=== PATIENT | female | born 2000 | race Caucasian/White ===

== ENCOUNTER 2024-12-10 13:29 | Inpatient (IN) ==
[2024-12-10] MEDS ORDERED: VANCOMYCIN CONSULT ACTIVE PRN (13:58)
[2024-12-10] MEDS ORDERED: LIDOCAINE 1% LOCAL 20 ML VIAL INFIL PRN (13:58)
[2024-12-10] MEDS ORDERED: VANCOMYCIN HCL 1,000 MG/270 ML BAG IV STA (13:58)
--- NOTE | 2024-12-10 13:58 | Labor Progress Brief Note ---
Date of Service December 10, 2024 Subjective 24yo at 36w3d with SIUP. Pt was seen in office yesterday and c/o significant itching, including on palms and soles but on other surfaces / body parts also. "It can be anywhere." Labs done yesterday were resulted showing DBili 0.4, AST 277, ALT 555. This preg c/b A1GDM, GBS positivity, and vaping daily. Recent growth US has been EFW 34%, AC 51%. Patient's obstetric history is notable for a 40wk IUFD in December 2023 at [facility]. There was SGA and oligohydramnios at the time of delivery. No cause for the demise was ever identified per patient other than possible cord accident; specifically, chromosome testing and postmortem exam were WNL. I have discussed this patient's case with Dr. Jovan Davila at [facility]. While bile acids will take a while to result, he advises that the presumed diagnosis of cholestasis indicates for delivery as she is >36wk. The option to attempt to delay delivery to achieve steroid administration and/or 37wk GA is also considered reasonable given her current labs and symptoms, and options were therefore relayed to patient. She prefers immediate IOL given her history and current anxiety about the prior outcome repeating. Assessment & Plan (1) Cholestasis of : Plan: Patient with elevated LFT's, Direct Bili, and itching. H/O prior term IUFD. Offered IOL vs med mgmt to 37wk and patient elects IOL at this time. Have discussed the small but real risk of support needed d/t prematurity, and pt accepts. Vanco for GBS+ with h/o anaphylaxis to amox and keflex. Given cervix exam will start with Faustin balloon, explained to pt who is agreeable. Admission and Anticipated Discharge Date Admission Date: December 10, 2024 Physical Exam Physical Exam: NAD, talkative. No obvious skin rash. Gravid AGA / Term, abd nontender. Genitourinary: FHT Cat 1 [place] quiet Cvx 2/th/-2/mod/post, EFW 6-7 No ROM evident Results & Data Vital Signs (Past 12 Hours) Vital Signs Pulse BP 12/10/24 13:47 51 L 124/60 Coding Level of Care Code None Diagnoses Cholestasis of O26.649
--- NOTE | 2024-12-10 14:45 | Pharmacy Report ---
Pharmacy PK ABX Note - Date of Service December 10, 2024 - Assessment and Plan Assessment Arti is a 24 year old 36w3d F who presented with significant itching, DBili 0.4, AST 277, ALT 555. Patient elected for induction of labor in the setting of presumed diagnosis of cholestasis. She is GBS positive with h/o anaphylaxis to amoxicillin and cephalexin. Clindamycin susceptibility unknown. Plan Vancomycin * Loading dose: 2000 mg IV x 1 * Maintenance dose: 1250 mg (~14 mg/kg) IV every 12 hours * Vanc level not ordered at this time - anticipate short course * Routine monitoring of trough or peak serum vancomycin levels for GBS prophylaxis is not recommended unless the woman is also on another potentially ototoxic agent, such as an aminoglycoside (ACOG. Prevention of Group B Strep Early-onset Disease in Newborns. 2019) Pharmacy will continue to follow and will adjust dose/frequency as necessary. Thank you.
[2024-12-10 14:52] LABS: Hematocrit (blood only) 35.1 % (37.0-47.0); Hemoglobin 11.5 g/dl (12.0-16.0); Mean Corpuscular Hemoglobin 27.8 pg (25.0-34.0); Mean Corpuscular Hgb Conc 32.8 g/dL (32.0-36.0); Mean Platelet Volume 11.3 fL (9.4-12.4); Platelet Count 276 K/uL (130-400); RDW Coefficient of Variation 13.2 % (11.5-14.5); RDW Standard Deviation 40.7 fL (36.4-46.3); Red Blood Count 4.13 M/uL (4.20-5.40)
[2024-12-10 14:59] LABS: Albumin Level 3.2 gm/dl (3.4-5.0); BUN Creatinine Ratio 10.7 (10-20); Bilirubin Direct 0.3 mg/dl (0-0.2); Bilirubin,Total 0.7 mg/dl (0.2-1.0); Calcium 9.4 mg/dl (8.6-10.3); Creatinine Clr Calc Pharmacy 146.6 ml/min; Globulin 3.1 gm/dl (2.5-4.0); Total Protein 6.3 gm/dl (6.0-8.3)
--- NOTE | 2024-12-10 15:38 | Procedure Note ---
Procedure Note Date of Service December 10, 2024 monitoring was used to ensure reassuring status. The patient was verbally consented for placement of a brannon for cervical ripening, with discussion of risks, benefits and alternatives. All her questions were answered. Her legs were placed in lithotomy position. A lubricated, gloved hand was used to examine the cervix. A stylet was lubricated and inserted into a brannon catheter to give it stiffness, and the brannon catheter was then advanced along my fingers until it reached the external cervical os. The brannon was then fed forward off of the stylet, which was itself never moved beyond the external os, such that the soft catheter advanced into the uterine cavity outside of the amnion until the balloon was definitely above the internal cervical os. The balloon was then inflated using sterile water to 30cc volume. Gentle traction was used to seat the balloon downward against the internal cervical os. My hand and the stylet were removed from the vagina, and the brannon was secured to the patient's leg with a standard brannon holding sticker. There was no significant bleeding or leakage of fluid. The heart tones remained reassuring after this process, which the patient tolerated well. Coding Additional Codes Date of Service ([email or web address])
[2024-12-10] MEDS: LACTATED RINGER'S 1,000 ML IV PRN (15:43)
[2024-12-10] MEDS: VANCOMYCIN HCL 2,000 MG in SODIUM CHLORIDE 0.9% 500 ML IV ONE (15:44)
[2024-12-10] MEDS: OXYTOCIN 30 UNITS/NSS 30 UNITS/500 ML BAG IV PRN (15:47)
--- NOTE | 2024-12-10 18:08 | History & Physical Report ---
Date of Service December 10, 2024 Assessment & Plan (1) Encounter for induction of labor: (2) Cholestasis of : Plan: Patient with elevated LFT's, Direct Bili, and itching. H/O prior term IUFD. Offered IOL vs med mgmt to 37wk and patient elects IOL at this time. Have discussed the small but real risk of support needed d/t prematurity, and pt accepts. Vanco for GBS+ with h/o anaphylaxis to amox and keflex. Given cervix exam will start with Faustin balloon, explained to pt who is agreeable. (3) Positive GBS test: Elif Chi is a 24yo at 36w3d who initially came in for elevated LFTs, elevated direct bilirubin, and generalized itching, admitted for IOL. Vanco for GBS+ due to anaphylaxis to amox and keflex Faustin bulb in Pitocin AROM when indicated Continue monitoring, currently category 1 Admission and Anticipated Discharge Date Admission Date: December 10, 2024 History of Present Illness Primary Care Provider: NO PCP Allergies Allergy/AdvReac Type Severity Reaction Status Date / Time amoxicillin Allergy Severe Anaphylaxis Verified 12/10/24 14:20 cephalexin [From Keflex] Allergy Severe Anaphylaxis Verified 12/10/24 14:20 animal dander Allergy Sneezing Verified 12/10/24 13:48 house dust mite Allergy Sneezing Verified 12/10/24 13:48 Home Medications Medication Instructions Recorded Confirmed Type albuterol sulfate 90 mcg/actuation See Rx Instructions .Route 06/29/19 12/10/24 History aerosol inhaler .COMPLEX PRN Wheezing acetone (urine) test (Ketone Urine #50 ea 11/07/24 12/09/24 Rx Test strips) blood sugar diagnostic (OneTouch #150 ea 11/07/24 12/09/24 Rx Verio test strips) blood-glucose meter (OneTouch #1 ea 11/07/24 12/09/24 Rx Verio Reflect Meter) lancets 33 gauge (OneTouch Delica #150 ea 11/07/24 12/09/24 Rx Plus Lancet) vits no.124-ferrous fum 1 tab PO DAILY 12/10/24 12/10/24 History 27 mg iron-folic acid 800 mcg tablet ( Vitamin) Past Med/Surg History Problem List (Updated 12/10/24 @ 18:08 by Micky Gann DO) Positive GBS test Encounter for induction of labor Cholestasis of Non-reactive NST (non-stress test) Gestational diabetes mellitus (GDM) affecting , antepartum Carrier of group B Streptococcus Encounter for supervision of normal intrauterine in multigravida, antepartum Prior with demise, antepartum Current every day vaping Encounter for anatomic survey Medical History (Updated 12/10/24 @ 18:08 by Micky Gann DO) IUFD at 20 weeks or more of gestation IUFD at 40 2/7 days, s/p 01/02/2024 at [facility] Abnormal finding on thyroid function test Acne Allergic rhinitis Asthma Depression with anxiety Moderate persistent asthma History of IUFD 40 weeks gestation of IUFD at 40 2/7 days, s/p 01/02/2024 at [facility] Chlamydia Varicella vaccination Surgical History History of tonsillectomy and adenoidectomy Family History Grandmother (Paternal) Diabetes Breast cancer Mother Hypothyroidism Aunt Ovarian cancer Denies family history of Colorectal cancer Social History Smoking Status: Never smoker Tobacco Type: E-cigarettes / Vaping Do You Dip or Chew Tobacco: No; Hx Alcohol Use: No Hx Substance Use: No Preferred Language: Bahraini Ingot Supervisor Required: No Beliefs That Will Affect Care: None marital status: Single marital status details: angelinabetzaida Stanley (24) [phone] Current Living Situation: Significant Other Current Living Situation Comment: lives with parents and brother, 6 cats-fob and mother changing litter current occupational status: unemployed current occupation: unemployed Other Information That Helps Us Care for You: No Feels Safe at Home: Yes Safety Concerns: Feels Safe At This Time Assistive Devices: None Results & Data Results & Data Vital Signs (Past 12 Hours) Vital Signs Temp Pulse Resp BP 12/10/24 18:02 72 109/75 12/10/24 16:55 36.4 C L 74 20 118/57 L 12/10/24 16:32 77 118/59 L 12/10/24 15:48 65 112/78 12/10/24 13:47 36.6 C 51 L 20 124/60 (2) Cholestasis of Trimester: unspecified trimester Qualified Code(s): O26.649 - Intrahepatic cholestasis of , unspecified trimester
[2024-12-11] MEDS ORDERED: VANCOMYCIN HCL 1,000 MG/270 ML BAG IV PRN (00:59)
[2024-12-11] MEDS: VANCOMYCIN HCL 1,250 MG in SODIUM CHLORIDE 0.9% 250 ML IV PRN (03:40)
[2024-12-11] MEDS ORDERED: NALBUPHINE HCL INJ 10 MG/ML AMP IV PRN (04:29)
[2024-12-11] MEDS ORDERED: LIDOCAINE 2% MPF LOCAL 5 ML VIAL EPI PRN (04:29)
[2024-12-11] MEDS ORDERED: NALOXONE HCL 0.4 MG/1 ML VIAL/CARP IV PRN (04:29)
[2024-12-11] MEDS ORDERED: fentaNYL citrate PF 100 MCG/2 ML VIAL EPI PRN (04:29)
[2024-12-11] MEDS ORDERED: BUPIVACAINE 0.25% PF 30 ML VIAL EPI PRN (04:29)
[2024-12-11] MEDS ORDERED: NALOXONE HCL 1 MG in SODIUM CHLORIDE 0.9% 1,000 ML IV PRN (04:29)
[2024-12-11] MEDS ORDERED: ePHEDrine sulfate 50 MG/ML AMP IV PRN (04:29)
[2024-12-11] MEDS ORDERED: SODIUM CHLORIDE 0.9% PF INJ 10 ML VIAL EPI PRN (04:29)
[2024-12-11] MEDS ORDERED: ROPIVACAINE 0.5% PF 5 MG/ML 20 ML VIAL EPI PRN (04:29)
--- NOTE | 2024-12-11 04:32 | Anesthesiology Consultation ---
Date of Service December 11, 2024 Assessment & Plan Chart Review Chart Review: Patient NOT seen in Pre Admission Testing and Acceptable Risk for Labor Epidural Consults Requested none ASA ASA3 Proposed Anesthesia Anesthesia Type: Labor Epidural Risk / Benefits Reviewed With: PT / POA / Parent / Guardian, Accepts Plan and Informed Consent Obtained History Height/Weight Height: 4 ft 10 in Weight: 91.172 kg Allergies Allergy/AdvReac Type Severity Reaction Status Date / Time amoxicillin Allergy Severe Anaphylaxis Verified 12/10/24 14:20 cephalexin [From Keflex] Allergy Severe Anaphylaxis Verified 12/10/24 14:20 animal dander Allergy Sneezing Verified 12/10/24 13:48 house dust mite Allergy Sneezing Verified 12/10/24 13:48 Medications Home Medications Medication Instructions Recorded Confirmed Last Taken albuterol sulfate 90 mcg/actuation See Rx Instructions .Route 06/29/19 12/10/24 Unknown aerosol inhaler .COMPLEX PRN Wheezing acetone (urine) test (Ketone Urine #50 ea 11/07/24 12/09/24 Unknown Test strips) blood sugar diagnostic (OneTouch #150 ea 11/07/24 12/09/24 Unknown Verio test strips) blood-glucose meter (OneTouch #1 ea 11/07/24 12/09/24 Unknown Verio Reflect Meter) lancets 33 gauge (OneTouch Delica #150 ea 11/07/24 12/09/24 Unknown Plus Lancet) vits no.124-ferrous fum 1 tab PO DAILY 12/10/24 12/10/24 12/10/24 11:00 27 mg iron-folic acid 800 mcg tablet ( Vitamin) Active Medications Generic Name Dose Route Start Last Admin Trade Name Freq PRN Reason Stop Dose Admin Lactated Ringer's 1,000 mls @ 125 mls/hr 12/10/24 13:58 12/11/24 04:10 Lr IV 12/11/24 13:57 Infused .Q8H PRN Infusion L&D Protocol Protocol Oxytocin 30 units in 500 mls @ 14 mls/hr 12/10/24 13:58 12/11/24 01:30 Pitocin 30 Units/Nss IV 12/12/24 13:57 0.84 units/hr .Q24H PRN 14 mls/hr Labor Induction/Augmentation Titration Protocol 0.84 UNITS/HR Vancomycin HCl 1,250 mg/ 275 mls @ 200 mls/hr 12/11/24 03:45 12/11/24 05:17 Sodium Chloride IV 12/21/24 03:44 0 mls/hr Q12H PRN Titration GBS(+) Until Delivery NPO Date Last Intake of Fluids: 12/11/24 Time Last Intake of Fluids: 04:00 Date Last Intake of Solids: 12/10/24 Time Last Intake of Solids: 10:00 Past Medical History Medical History IUFD at 20 weeks or more of gestation IUFD at 40 2/7 days, s/p 01/02/2024 at [facility] Abnormal finding on thyroid function test Acne Allergic rhinitis Asthma Depression with anxiety Moderate persistent asthma History of IUFD 40 weeks gestation of IUFD at 40 2/7 days, s/p 01/02/2024 at [facility] Chlamydia Varicella vaccination Exercise / Class Metabolic Activity 1 > 8 Run/Swim/Ski/Tennis Past Family History Family History Grandmother (Paternal) Diabetes Breast cancer Mother Hypothyroidism Aunt Ovarian cancer Paternal Denies family history of Colorectal cancer Past Surgical History Surgical History History of tonsillectomy and adenoidectomy Past Anesthesia History No Hx of Anesthesia Complications and No Family Hx of Anesthesia Complications History of PONV No Hx of PONV and No Hx of Motion Sickness Social History Smoking Status: Never smoker Do You Dip or Chew Tobacco: No Hx Alcohol Use: No Hx Substance Use: No Review of Systems ROS Unobtainable: All systems reviewed & are unremarkable except as noted in HPI & below Physical Exam Vital Signs Last Vital Signs Temp 37.9 C H 12/10/24 23:36 Pulse 59 L 12/11/24 04:26 Resp 16 12/10/24 23:36 BP 140/85 12/11/24 04:02 Pulse Ox 100 12/11/24 04:26 ENMT Mouth: no TMJ abnormality Thyromental Distance: > or= 3.5 Finger Breadths Mallampati Class: II Neck normal visual inspection and trachea midline; neck extension not limited Respiratory normal respiratory effort Auscultation: lungs clear to auscultation bilaterally Cardiovascular Rate/Rhythm: regular rate and regular rhythm Heart Sounds: no murmur Musculoskeletal Spine: normal cervical ROM Extremities: full ROM of extremities Neurologic moves all extremities Psychiatric Orientation: alert and oriented x 3 Testing Laboratory Results 12/10/24 14:16 12/10/24 14:16 Blood Type B Positive 12/10/24 14:16 Antibody Screen NEGATIVE 12/10/24 14:16
[2024-12-11] MEDS: LIDOCAINE 2%/EPINEPHRINE 1:200,000 20 ML PF ONE (05:11)
[2024-12-11] MEDS: BUPIVACAINE 0.25% PF 30 ML VIAL ONE (05:11)
[2024-12-11] MEDS: ONDANSETRON INJ 2 MG/ML 2 ML VIAL IV STA (05:13)
[2024-12-11] MEDS: fentANYL 2 MCG/ML BUPIVacaine 0.125%-NSS 100ML BAG ONE (05:15)
[2024-12-11] MEDS: SODIUM CHLORIDE 0.9% PF INJ 10 ML VIAL ONE (05:17)
[2024-12-11] MEDS: fentaNYL citrate PF 100 MCG/2 ML VIAL ONE (05:17)
[2024-12-11] MEDS: BUPIVACAINE 0.25% PF 30 ML VIAL EPI STA (05:17)
[2024-12-11] MEDS: fentaNYL citrate PF 100 MCG/2 ML VIAL EPI STA (05:18)
[2024-12-11] MEDS: LIDOCAINE 2%/EPINEPHRINE 1:200,000 20 ML PF EPI STA (05:18)
[2024-12-11] MEDS: SODIUM CHLORIDE 0.9% PF INJ 10 ML VIAL EPI STA (05:18)
--- NOTE | 2024-12-11 06:26 | Labor Progress Brief Note ---
Date of Service December 11, 2024 Subjective Comfortable with epidural. Assessment & Plan Admission and Anticipated Discharge Date Admission Date: December 10, 2024 Physical Exam Genitourinary: Pit @ 16 Cvx 3/50/-2 AROM clear fluid FHT Cat 1 [place] Q2-6 irreg Results & Data Vital Signs (Past 12 Hours) Vital Signs Temp Pulse Resp BP Pulse Ox 12/11/24 06:23 90 98 12/11/24 06:20 73 87 L 12/11/24 06:18 59 L 100 12/11/24 06:13 62 100 12/11/24 06:08 55 L 100 12/11/24 06:04 57 L 127/62 12/11/24 06:03 55 L 100 12/11/24 05:58 56 L 100 12/11/24 05:53 60 100 12/11/24 05:49 90 12/11/24 05:49 64 12/11/24 05:49 58 L 122/61 12/11/24 05:48 55 L 100 12/11/24 05:46 69 171/72 H 12/11/24 05:43 60 100 12/11/24 05:41 73 144/72 H 12/11/24 05:37 57 L 100 12/11/24 05:36 76 143/70 H 12/11/24 05:32 60 100 12/11/24 05:31 55 L 140/65 12/11/24 05:27 53 L 100 12/11/24 05:25 57 L 165/72 H 12/11/24 05:24 53 L 86 L 12/11/24 05:23 82 145/61 H 12/11/24 05:22 79 100 12/11/24 05:20 54 L 146/64 H 12/11/24 05:19 80 146/67 H 12/11/24 05:17 100 12/11/24 05:17 69 12/11/24 05:17 76 145/66 H 12/11/24 05:14 106 H 153/77 H 12/11/24 05:13 134 H 171/95 H 12/11/24 05:12 123 H 100 12/11/24 05:07 77 85 L 12/11/24 05:05 76 124/91 12/11/24 05:02 89 100 12/11/24 04:57 86 100 12/11/24 04:52 88 99 12/11/24 04:50 73 86 L 12/11/24 04:47 84 100 12/11/24 04:42 86 100 12/11/24 04:36 63 100 12/11/24 04:31 55 L 100 12/11/24 04:26 59 L 100 12/11/24 04:02 71 140/85 12/11/24 03:37 16 12/11/24 03:37 97.9 F 16 12/11/24 01:39 62 171/76 H 12/11/24 00:20 77 146/63 H 12/10/24 23:36 16 12/10/24 23:36 98.4 F 16 12/10/24 21:43 68 143/80 H 12/10/24 20:31 109 H 130/89 12/10/24 19:08 18 12/10/24 19:08 97.7 F 18 12/10/24 19:05 78 135/81 Coding Level of Care Code None
[2024-12-11] MEDS: ePHEDrine sulfate 50 MG/ML AMP ONE (07:03)
[2024-12-11] MEDS: diphenhydrAMINE 50 MG/ML VIAL IV PRN (10:51)
--- NOTE | 2024-12-11 12:31 | Labor Progress Brief Note ---
Date of Service December 11, 2024 Subjective Very uncomfortable - feels very itchy uncomfortable with the inability to move around after epidural. Discussed options to either continue the epidural and try to reposition more frequently, vs remove epidural entirely. Cervix exam 5-6/-2 FHT Cat 1 [place] Q 5 She would like to keep epidural in place, will try a dose of PO hydroxyzine for anxiety/itching. Assessment & Plan Admission and Anticipated Discharge Date Admission Date: December 10, 2024 Results & Data Vital Signs (Past 12 Hours) Vital Signs Temp Pulse Resp BP Pulse Ox 12/11/24 12:24 63 99 12/11/24 12:20 83 126/87 12/11/24 12:19 76 99 12/11/24 12:14 72 100 12/11/24 12:09 76 100 12/11/24 12:04 86 129/62 93 12/11/24 12:02 87 89 L 12/11/24 11:59 79 100 12/11/24 11:55 89 92 12/11/24 11:54 90 100 12/11/24 11:51 72 124/59 L 12/11/24 11:49 82 100 12/11/24 11:44 116 H 100 12/11/24 11:39 101 H 94 12/11/24 11:38 103 H 88 L 12/11/24 11:34 100 12/11/24 11:34 82 12/11/24 11:34 95 H 125/72 12/11/24 11:29 73 98 12/11/24 11:24 66 99 12/11/24 11:20 80 18 121/66 12/11/24 11:19 65 100 12/11/24 11:14 59 L 100 12/11/24 11:11 71 93 12/11/24 11:09 69 100 12/11/24 11:05 64 113/73 90 12/11/24 11:04 65 100 12/11/24 10:59 100 12/11/24 10:59 66 12/11/24 10:59 70 90 12/11/24 10:56 18 12/11/24 10:56 36.7 C 18 12/11/24 10:54 73 98 12/11/24 10:53 76 91 12/11/24 10:50 83 127/75 12/11/24 10:49 93 H 100 12/11/24 10:44 96 H 99 12/11/24 10:40 88 89 L 12/11/24 10:39 67 98 12/11/24 10:34 100 12/11/24 10:34 72 12/11/24 10:34 73 135/84 12/11/24 10:29 63 99 12/11/24 10:24 69 99 12/11/24 10:20 98 H 18 129/82 12/11/24 10:19 95 H 99 12/11/24 10:14 82 100 12/11/24 10:12 88 93 12/11/24 10:09 75 95 12/11/24 10:06 74 92 12/11/24 10:04 73 141/84 H 100 12/11/24 09:59 77 100 12/11/24 09:54 86 100 12/11/24 09:53 72 91 12/11/24 09:49 69 140/78 100 12/11/24 09:44 93 12/11/24 09:44 66 12/11/24 09:44 63 91 12/11/24 09:39 61 100 12/11/24 09:36 75 92 12/11/24 09:34 62 131/64 99 12/11/24 09:29 57 L 97 12/11/24 09:24 80 94 12/11/24 09:20 72 128/61 12/11/24 09:19 64 97 12/11/24 09:17 66 92 12/11/24 09:14 67 100 12/11/24 09:09 71 100 12/11/24 09:04 68 117/62 100 12/11/24 09:00 18 12/11/24 09:00 36.7 C 18 12/11/24 08:59 69 99 12/11/24 08:54 61 100 12/11/24 08:49 100 12/11/24 08:49 70 12/11/24 08:49 68 124/63 12/11/24 08:44 80 94 12/11/24 08:43 76 89 L 12/11/24 08:39 62 99 12/11/24 08:36 64 18 121/61 12/11/24 08:34 65 100 12/11/24 08:29 55 L 100 12/11/24 08:24 61 99 03/13/25 08:23 78 92 12/11/24 08:22 75 113/55 L 12/11/24 08:19 62 100 12/11/24 08:14 75 100 12/11/24 08:09 58 L 100 12/11/24 08:05 66 122/59 L 12/11/24 08:04 82 98 12/11/24 07:59 66 100 12/11/24 07:54 93 H 100 12/11/24 07:53 86 91 12/11/24 07:50 59 L 118/58 L 12/11/24 07:49 76 100 12/11/24 07:44 77 100 12/11/24 07:43 75 89 L 12/11/24 07:39 69 100 12/11/24 07:36 79 90 12/11/24 07:35 74 110/68 12/11/24 07:34 66 100 12/11/24 07:29 100 12/11/24 07:29 78 12/11/24 07:29 74 89 L 12/11/24 07:24 76 95 12/11/24 07:22 83 91 12/11/24 07:20 71 123/74 12/11/24 07:19 61 100 12/11/24 07:14 59 L 99 12/11/24 07:09 64 100 12/11/24 07:07 81 91 12/11/24 07:04 20 12/11/24 07:04 37.0 C 20 12/11/24 07:03 78 92 12/11/24 07:02 72 90 12/11/24 06:58 64 99 12/11/24 06:53 59 L 100 12/11/24 06:50 65 125/63 12/11/24 06:48 60 100 12/11/24 06:47 57 L 91 12/11/24 06:43 61 100 12/11/24 06:38 69 100 12/11/24 06:33 100 12/11/24 06:33 84 12/11/24 06:33 78 88 L 12/11/24 06:28 61 100 12/11/24 06:27 68 92 12/11/24 06:23 90 98 12/11/24 06:20 73 87 L 12/11/24 06:18 59 L 100 12/11/24 06:13 62 100 12/11/24 06:08 55 L 100 12/11/24 06:04 57 L 127/62 12/11/24 06:03 55 L 100 12/11/24 05:58 56 L 100 12/11/24 05:53 60 100 12/11/24 05:49 90 12/11/24 05:49 64 12/11/24 05:49 58 L 122/61 12/11/24 05:48 55 L 100 12/11/24 05:46 69 171/72 H 12/11/24 05:43 60 100 12/11/24 05:41 73 144/72 H 12/11/24 05:37 57 L 100 12/11/24 05:36 76 143/70 H 12/11/24 05:32 60 100 12/11/24 05:31 55 L 140/65 12/11/24 05:27 53 L 100 12/11/24 05:25 57 L 165/72 H 12/11/24 05:24 53 L 86 L 12/11/24 05:23 82 145/61 H 12/11/24 05:22 79 100 12/11/24 05:20 54 L 146/64 H 12/11/24 05:19 80 146/67 H 12/11/24 05:17 100 12/11/24 05:17 69 12/11/24 05:17 76 145/66 H 12/11/24 05:14 106 H 153/77 H 12/11/24 05:13 134 H 171/95 H 12/11/24 05:12 123 H 100 12/11/24 05:07 77 85 L 12/11/24 05:05 76 124/91 12/11/24 05:02 89 100 12/11/24 04:57 86 100 12/11/24 04:52 88 99 12/11/24 04:50 73 86 L 12/11/24 04:47 84 100 12/11/24 04:42 86 100 12/11/24 04:36 63 100 12/11/24 04:31 55 L 100 12/11/24 04:26 59 L 100 12/11/24 04:02 71 140/85 12/11/24 03:37 16 12/11/24 03:37 36.6 C 16 12/11/24 01:39 62 171/76 H Coding Level of Care Code None
--- NOTE | 2024-12-11 12:48 | Labor Progress Brief Note ---
Date of Service December 11, 2024 Subjective Internal monitors placed in an effort to improve patient comfort - IUPC, FSE placed. Tolerated well. FHT Cat 1 Assessment & Plan Admission and Anticipated Discharge Date Admission Date: December 10, 2024 Results & Data Vital Signs (Past 12 Hours) Vital Signs Temp Pulse Resp BP Pulse Ox 12/11/24 12:44 68 99 12/11/24 12:39 61 100 12/11/24 12:34 58 L 129/76 99 12/11/24 12:29 60 99 12/11/24 12:24 63 99 12/11/24 12:20 83 126/87 12/11/24 12:19 76 99 12/11/24 12:14 72 100 12/11/24 12:09 76 100 12/11/24 12:04 86 129/62 93 12/11/24 12:02 87 89 L 12/11/24 11:59 79 100 12/11/24 11:55 89 92 12/11/24 11:54 90 100 12/11/24 11:51 72 124/59 L 12/11/24 11:49 82 100 12/11/24 11:44 116 H 100 12/11/24 11:39 101 H 94 12/11/24 11:38 103 H 88 L 12/11/24 11:34 100 12/11/24 11:34 82 12/11/24 11:34 95 H 125/72 12/11/24 11:29 73 98 12/11/24 11:24 66 99 12/11/24 11:20 80 18 121/66 12/11/24 11:19 65 100 12/11/24 11:14 59 L 100 12/11/24 11:11 71 93 12/11/24 11:09 69 100 12/11/24 11:05 64 113/73 90 12/11/24 11:04 65 100 12/11/24 10:59 100 12/11/24 10:59 66 12/11/24 10:59 70 90 12/11/24 10:56 18 12/11/24 10:56 36.7 C 18 12/11/24 10:54 73 98 12/11/24 10:53 76 91 12/11/24 10:50 83 127/75 12/11/24 10:49 93 H 100 12/11/24 10:44 96 H 99 12/11/24 10:40 88 89 L 12/11/24 10:39 67 98 12/11/24 10:34 100 12/11/24 10:34 72 12/11/24 10:34 73 135/84 12/11/24 10:29 63 99 12/11/24 10:24 69 99 12/11/24 10:20 98 H 18 129/82 12/11/24 10:19 95 H 99 12/11/24 10:14 82 100 12/11/24 10:12 88 93 12/11/24 10:09 75 95 12/11/24 10:06 74 92 12/11/24 10:04 73 141/84 H 100 12/11/24 09:59 77 100 12/11/24 09:54 86 100 12/11/24 09:53 72 91 12/11/24 09:49 69 140/78 100 12/11/24 09:44 93 12/11/24 09:44 66 12/11/24 09:44 63 91 12/11/24 09:39 61 100 12/11/24 09:36 75 92 12/11/24 09:34 62 131/64 99 12/11/24 09:29 57 L 97 12/11/24 09:24 80 94 12/11/24 09:20 72 128/61 12/11/24 09:19 64 97 12/11/24 09:17 66 92 12/11/24 09:14 67 100 12/11/24 09:09 71 100 12/11/24 09:04 68 117/62 100 12/11/24 09:00 18 12/11/24 09:00 36.7 C 18 12/11/24 08:59 69 99 12/11/24 08:54 61 100 12/11/24 08:49 100 12/11/24 08:49 70 12/11/24 08:49 68 124/63 12/11/24 08:44 80 94 12/11/24 08:43 76 89 L 12/11/24 08:39 62 99 12/11/24 08:36 64 18 121/61 12/11/24 08:34 65 100 12/11/24 08:29 55 L 100 12/11/24 08:24 61 99 12/11/24 08:23 78 92 12/11/24 08:22 75 113/55 L 12/11/24 08:19 62 100 12/11/24 08:14 75 100 12/11/24 08:09 58 L 100 12/11/24 08:05 66 122/59 L 12/11/24 08:04 82 98 12/11/24 07:59 66 100 12/11/24 07:54 93 H 100 12/11/24 07:53 86 91 12/11/24 07:50 59 L 118/58 L 12/11/24 07:49 76 100 12/11/24 07:44 77 100 12/11/24 07:43 75 89 L 12/11/24 07:39 69 100 12/11/24 07:36 79 90 12/11/24 07:35 74 110/68 12/11/24 07:34 66 100 12/11/24 07:29 100 12/11/24 07:29 78 12/11/24 07:29 74 89 L 12/11/24 07:24 76 95 12/11/24 07:22 83 91 12/11/24 07:20 71 123/74 12/11/24 07:19 61 100 12/11/24 07:14 59 L 99 12/11/24 07:09 64 100 12/11/24 07:07 81 91 12/11/24 07:04 20 12/11/24 07:04 37.0 C 20 12/11/24 07:03 78 92 12/11/24 07:02 72 90 12/11/24 06:58 64 99 12/11/24 06:53 59 L 100 12/11/24 06:50 65 125/63 12/11/24 06:48 60 100 12/11/24 06:47 57 L 91 12/11/24 06:43 61 100 12/11/24 06:38 69 100 12/11/24 06:33 100 12/11/24 06:33 84 12/11/24 06:33 78 88 L 12/11/24 06:28 61 100 12/11/24 06:27 68 92 12/11/24 06:23 90 98 12/11/24 06:20 73 87 L 12/11/24 06:18 59 L 100 12/11/24 06:13 62 100 12/11/24 06:08 55 L 100 12/11/24 06:04 57 L 127/62 12/11/24 06:03 55 L 100 12/11/24 05:58 56 L 100 12/11/24 05:53 60 100 12/11/24 05:49 90 12/11/24 05:49 64 12/11/24 05:49 58 L 122/61 12/11/24 05:48 55 L 100 12/11/24 05:46 69 171/72 H 12/11/24 05:43 60 100 12/11/24 05:41 73 144/72 H 12/11/24 05:37 57 L 100 12/11/24 05:36 76 143/70 H 12/11/24 05:32 60 100 12/11/24 05:31 55 L 140/65 12/11/24 05:27 53 L 100 12/11/24 05:25 57 L 165/72 H 12/11/24 05:24 53 L 86 L 12/11/24 05:23 82 145/61 H 12/11/24 05:22 79 100 12/11/24 05:20 54 L 146/64 H 12/11/24 05:19 80 146/67 H 12/11/24 05:17 100 12/11/24 05:17 69 12/11/24 05:17 76 145/66 H 12/11/24 05:14 106 H 153/77 H 12/11/24 05:13 134 H 171/95 H 12/11/24 05:12 123 H 100 12/11/24 05:07 77 85 L 12/11/24 05:05 76 124/91 12/11/24 05:02 89 100 12/11/24 04:57 86 100 12/11/24 04:52 88 99 12/11/24 04:50 73 86 L 12/11/24 04:47 84 100 12/11/24 04:42 86 100 12/11/24 04:36 63 100 12/11/24 04:31 55 L 100 12/11/24 04:26 59 L 100 12/11/24 04:02 71 140/85 12/11/24 03:37 16 12/11/24 03:37 36.6 C 16 12/11/24 01:39 62 171/76 H Coding Level of Care Code None
[2024-12-11] MEDS: hydrOXYzine HCl 25 MG TAB PO STA (12:59)
[2024-12-11] MEDS: fentANYL 2 MCG/ML BUPIVacaine 0.125%-NSS 100ML BAG EPI PRN (13:37)
[2024-12-11] MEDS: ONDANSETRON INJ 2 MG/ML 2 ML VIAL ONE (14:25)
--- NOTE | 2024-12-11 17:32 | Labor Progress Brief Note ---
Date of Service December 11, 2024 Subjective Comfortable. FHT Cat 1 [place] Q 2 SVE 6/100/-1 Assessment & Plan Admission and Anticipated Discharge Date Admission Date: December 10, 2024 Results & Data Vital Signs (Past 12 Hours) Vital Signs Temp Pulse Resp BP Pulse Ox 12/11/24 17:29 79 85 L 12/11/24 17:28 68 90 12/11/24 17:24 62 100 12/11/24 17:19 65 100 12/11/24 17:18 81 90 12/11/24 17:16 56 L 131/78 12/11/24 17:14 61 100 12/11/24 17:09 72 100 12/11/24 17:06 70 86 L 12/11/24 17:04 67 100 12/11/24 17:00 36.7 C 74 89 L 12/11/24 16:59 54 L 100 12/11/24 16:54 55 L 100 12/11/24 16:49 100 12/11/24 16:49 53 L 12/11/24 16:49 91 H 131/61 12/11/24 16:44 55 L 98 12/11/24 16:39 56 L 98 12/11/24 16:34 55 L 99 12/11/24 16:29 55 L 98 12/11/24 16:24 56 L 97 12/11/24 16:19 52 L 98 12/11/24 16:18 53 L 112/63 12/11/24 16:14 53 L 97 12/11/24 16:09 54 L 98 12/11/24 16:04 57 L 98 12/11/24 15:59 55 L 98 12/11/24 15:54 56 L 98 12/11/24 15:49 52 L 99 12/11/24 15:47 51 L 123/58 L 12/11/24 15:44 55 L 100 12/11/24 15:39 56 L 100 12/11/24 15:34 56 L 100 12/11/24 15:29 53 L 100 12/11/24 15:24 53 L 100 12/11/24 15:19 53 L 100 12/11/24 15:17 52 L 125/62 12/11/24 15:14 50 L 100 12/11/24 15:09 54 L 100 12/11/24 15:05 36.6 C 16 03/13/25 15:04 65 100 12/11/24 15:01 48 L 153/65 H 12/11/24 14:59 70 94 12/11/24 14:54 54 L 100 12/11/24 14:53 78 91 12/11/24 14:49 54 L 100 12/11/24 14:47 50 L 185/82 H 12/11/24 14:44 55 L 100 12/11/24 14:39 56 L 100 12/11/24 14:37 60 92 12/11/24 14:34 93 H 95 12/11/24 14:29 61 100 12/11/24 14:24 59 L 100 12/11/24 14:19 116 H 99 12/11/24 14:16 86 136/89 12/11/24 14:14 93 H 99 12/11/24 14:09 64 99 12/11/24 14:05 93 H 140/101 H 12/11/24 14:04 70 100 12/11/24 13:59 71 99 12/11/24 13:54 67 100 12/11/24 13:49 80 20 136/77 100 12/11/24 13:44 81 100 12/11/24 13:39 78 100 12/11/24 13:34 83 100 12/11/24 13:29 95 H 100 12/11/24 13:24 100 12/11/24 13:24 82 12/11/24 13:24 88 89 L 12/11/24 13:20 83 18 136/78 12/11/24 13:19 72 99 12/11/24 13:15 82 93 12/11/24 13:14 80 100 12/11/24 13:09 70 100 12/11/24 13:06 82 141/78 H 12/11/24 13:04 100 12/11/24 13:04 87 12/11/24 13:04 76 90 12/11/24 12:59 86 99 12/11/24 12:54 64 99 12/11/24 12:50 36.7 C 59 L 16 151/68 H 12/11/24 12:49 61 99 12/11/24 12:44 68 99 12/11/24 12:39 61 100 12/11/24 12:34 58 L 129/76 99 12/11/24 12:29 60 99 12/11/24 12:24 63 99 12/11/24 12:20 83 126/87 12/11/24 12:19 76 99 12/11/24 12:14 72 100 12/11/24 12:09 76 100 12/11/24 12:04 86 129/62 93 12/11/24 12:02 87 89 L 12/11/24 11:59 79 100 12/11/24 11:55 89 92 12/11/24 11:54 90 100 12/11/24 11:51 72 124/59 L 12/11/24 11:49 82 100 12/11/24 11:44 116 H 100 12/11/24 11:39 101 H 94 12/11/24 11:38 103 H 88 L 12/11/24 11:34 100 12/11/24 11:34 82 12/11/24 11:34 95 H 125/72 12/11/24 11:29 73 98 12/11/24 11:24 66 99 12/11/24 11:20 80 18 121/66 12/11/24 11:19 65 100 12/11/24 11:14 59 L 100 12/11/24 11:11 71 93 12/11/24 11:09 69 100 12/11/24 11:05 64 113/73 90 12/11/24 11:04 65 100 12/11/24 10:59 100 12/11/24 10:59 66 12/11/24 10:59 70 90 12/11/24 10:56 18 12/11/24 10:56 36.7 C 18 12/11/24 10:54 73 98 12/11/24 10:53 76 91 12/11/24 10:50 83 127/75 12/11/24 10:49 93 H 100 12/11/24 10:44 96 H 99 12/11/24 10:40 88 89 L 12/11/24 10:39 67 98 12/11/24 10:34 100 12/11/24 10:34 72 12/11/24 10:34 73 135/84 12/11/24 10:29 63 99 12/11/24 10:24 69 99 12/11/24 10:20 98 H 18 129/82 12/11/24 10:19 95 H 99 12/11/24 10:14 82 100 12/11/24 10:12 88 93 12/11/24 10:09 75 95 12/11/24 10:06 74 92 12/11/24 10:04 73 141/84 H 100 12/11/24 09:59 77 100 12/11/24 09:54 86 100 12/11/24 09:53 72 91 12/11/24 09:49 69 140/78 100 12/11/24 09:44 93 12/11/24 09:44 66 12/11/24 09:44 63 91 12/11/24 09:39 61 100 12/11/24 09:36 75 92 12/11/24 09:34 62 131/64 99 12/11/24 09:29 57 L 97 12/11/24 09:24 80 94 12/11/24 09:20 72 128/61 12/11/24 09:19 64 97 12/11/24 09:17 66 92 12/11/24 09:14 67 100 12/11/24 09:09 71 100 12/11/24 09:04 68 117/62 100 12/11/24 09:00 18 12/11/24 09:00 36.7 C 18 12/11/24 08:59 69 99 12/11/24 08:54 61 100 12/11/24 08:49 100 12/11/24 08:49 70 12/11/24 08:49 68 124/63 12/11/24 08:44 80 94 12/11/24 08:43 76 89 L 12/11/24 08:39 62 99 12/11/24 08:36 64 18 121/61 12/11/24 08:34 65 100 12/11/24 08:29 55 L 100 12/11/24 08:24 61 99 12/11/24 08:23 78 92 12/11/24 08:22 75 113/55 L 12/11/24 08:19 62 100 12/11/24 08:14 75 100 12/11/24 08:09 58 L 100 12/11/24 08:05 66 122/59 L 12/11/24 08:04 82 98 12/11/24 07:59 66 100 12/11/24 07:54 93 H 100 12/11/24 07:53 86 91 12/11/24 07:50 59 L 118/58 L 12/11/24 07:49 76 100 12/11/24 07:44 77 100 12/11/24 07:43 75 89 L 12/11/24 07:39 69 100 12/11/24 07:36 79 90 12/11/24 07:35 74 110/68 12/11/24 07:34 66 100 12/11/24 07:29 100 12/11/24 07:29 78 12/11/24 07:29 74 89 L 12/11/24 07:24 76 95 12/11/24 07:22 83 91 12/11/24 07:20 71 123/74 12/11/24 07:19 61 100 12/11/24 07:14 59 L 99 12/11/24 07:09 64 100 12/11/24 07:07 81 91 12/11/24 07:04 20 12/11/24 07:04 37.0 C 20 12/11/24 07:03 78 92 12/11/24 07:02 72 90 12/11/24 06:58 64 99 12/11/24 06:53 59 L 100 12/11/24 06:50 65 125/63 12/11/24 06:48 60 100 12/11/24 06:47 57 L 91 12/11/24 06:43 61 100 12/11/24 06:38 69 100 12/11/24 06:33 100 12/11/24 06:33 84 12/11/24 06:33 78 88 L 12/11/24 06:28 61 100 12/11/24 06:27 68 92 12/11/24 06:23 90 98 12/11/24 06:20 73 87 L 12/11/24 06:18 59 L 100 12/11/24 06:13 62 100 12/11/24 06:08 55 L 100 12/11/24 06:04 57 L 127/62 12/11/24 06:03 55 L 100 12/11/24 05:58 56 L 100 12/11/24 05:53 60 100 12/11/24 05:49 90 12/11/24 05:49 64 12/11/24 05:49 58 L 122/61 12/11/24 05:48 55 L 100 12/11/24 05:46 69 171/72 H 03/13/25 05:43 60 100 12/11/24 05:41 73 144/72 H 12/11/24 05:37 57 L 100 12/11/24 05:36 76 143/70 H 12/11/24 05:32 60 100 Coding Level of Care Code None
[2024-12-11] MEDS ORDERED: ROPIVACAINE 0.5% 5 MG/ML 30 ML VIAL ONE (18:26)
[2024-12-11] MEDS ORDERED: LIDOCAINE 2%/EPINEPHRINE 1:200,000 20 ML PF ONE (18:26)
--- NOTE | 2024-12-11 18:39 | Anesthesia Procedure Note ---
Date of Service December 11, 2024 Anesthesia Epidural Re-Dose Vital Signs Temp Pulse Resp BP Pulse Ox 36.7 C 58 L 16 136/63 100 12/11/24 17:00 12/11/24 18:37 12/11/24 15:05 12/11/24 18:37 12/11/24 18:34 Notes Pain Intensity: 9 Dilatation (cm): 6.0 Effacement (%): 100 Called by nursing to evaluate epidural as the patient is having increased pain. The epidural was re-dosed with the following medications (all medications via epidural route) after negative aspiration of the epidural catheter for CSF/HEME. 4ml of 2% LIdocaine with 4ml of 0.5% ropivicaine. After Epidural Re-Dose Mental Status: alert / awake / arousable Pain: improving with treatment Airway Patency, RR, SpO2: stable & adequate BP & HR: stable & adequate
[2024-12-11] MEDS: ONDANSETRON INJ 2 MG/ML 2 ML VIAL IV PRN (22:34)
--- NOTE | 2024-12-11 23:39 | Anesthesia Procedure Note ---
Date of Service December 11, 2024 Anesthesia Epidural Re-Dose Vital Signs Temp Pulse Resp BP Pulse Ox 36.8 C 64 16 110/59 L 100 12/11/24 21:43 12/11/24 23:37 12/11/24 19:19 12/11/24 23:37 12/11/24 23:35 Notes Pain Intensity: 0 Dilatation (cm): 8.0 Effacement (%): 100 Called by nursing to evaluate epidural as the patient is having increased pain. The epidural was re-dosed with the following medications (all medications via epidural route) after negative aspiration of the epidural catheter for CSF/HEME. 4mll of 2% LIdocaine mixed with 4ml of 0.5% ropivicainr. After Epidural Re-Dose Mental Status: alert / awake / arousable and participated in evaluation Pain: improving with treatment Airway Patency, RR, SpO2: stable & adequate BP & HR: stable & adequate
[2024-12-12] MEDS: OXYTOCIN 30 UNITS/NSS 30 UNITS/500 ML BAG IV PRN (05:07)
--- NOTE | 2024-12-12 05:22 | Delivery Summary ---
Vaginal Delivery Summary Date of Service December 12, 2024 Vaginal Delivery Summary and 1st Degree LAC Vaginal Delivery Summary: Pre-delivery diagnoses: 24yo @ 36 5/7, IOL for cholestasis of , history of term IUFD in prior , obesity, vaping, GBS+, gestational diabetes Post-delivery diagnoses: same Procedure: spontaneous vaginal delivery Surgeon: Theodora Ramírez DO Complications: none Findings: Viable female . Apgars: 7/8 . Weight pending, please see nursery records Estimated QBL: not calculated by time of this note - my estimate of EBL was approx 100cc. Description of delivery: The patient progressed to complete with epidural anesthesia. She then began to push. She spontaneously vaginally delivered a viable from the cephalic presentation. The head delivered in SUPA position. The anterior shoulder delivered, followed by the posterior shoulder, followed by the body. No nuchal. The baby was placed on mother's abdomen and a spontaneous cry was heard. Delayed cord clamping was employed, and the cord was doubly clamped and cut. Cord blood was obtained. The placenta was delivered spontaneously intact with a 3-vessel cord. The uterus and vagina were swept of clots and debris. IV pitocin was given. The uterus became firm. The cervix, vagina, and perineum were inspected and first degree perineal laceration was noted, it was hemostatic and superficial, therefore did not require repair. Excellent hemostasis was observed. The mother and baby are recovering in stable and good condition in the room. Sponge and instrument counts were correct x 2. Theodora Ramírez DO [facility] Vaginal Delivery Charge Vaginal Delivery Codes: 71508 global code for the antepartum, delivery, and post- Delivery Type Details: and 1st Degree LAC
[2024-12-12] MEDS ORDERED: HYDROCORTISONE ACETATE 25 MG SUPP PR PRN (05:35)
[2024-12-12] MEDS ORDERED: ALBUTEROL HFA 8 GM INHALER INH PRN (05:35)
[2024-12-12] MEDS ORDERED: ACETAMINOPHEN 325 MG TAB PO PRN (05:35)
[2024-12-12] MEDS ORDERED: OXYTOCIN 30 UNITS/NSS 30 UNITS/500 ML BAG IV PRN (05:35)
[2024-12-12] MEDS ORDERED: oxyCODONE/ACETAMINOPHEN 5mg/325mg TAB PO PRN (05:35)
[2024-12-12] MEDS ORDERED: bisacodyL 10 MG SUPP PR PRN (05:35)
[2024-12-12] MEDS ORDERED: IBUPROFEN 600 MG TAB PO PRN (05:35)
[2024-12-12] MEDS ORDERED: BENZOCAINE 20% SPRY 85 APPLN/85 GM CAN EXT PRN (05:35)
[2024-12-12] MEDS: KETOROLAC 30 MG/ML VIAL IV PRN (05:43)
[2024-12-12 06:02] LABS: Hematocrit (blood only) 33.8 % (37.0-47.0); Hemoglobin 11.1 g/dl (12.0-16.0); Mean Corpuscular Hemoglobin 27.9 pg (25.0-34.0); Mean Corpuscular Hgb Conc 32.8 g/dL (32.0-36.0); Mean Corpuscular Volume 84.9 fL (80.0-100.0); Mean Platelet Volume 11.4 fL (9.4-12.4); Platelet Count 259 K/uL (130-400); RDW Coefficient of Variation 13.6 % (11.5-14.5); RDW Standard Deviation 41.8 fL (36.4-46.3); Red Blood Count 3.98 M/uL (4.20-5.40); White Blood Count 20.35 K/ul (4.8-10.8)
--- NOTE | 2024-12-12 06:06 | Anesthesia Procedure Note ---
Date of Service December 12, 2024 Anesthesia Post Epidural Note Vital Signs Vital Signs: Temp Pulse Resp BP Pulse Ox 36.8 C 76 16 119/57 L 98 12/12/24 03:33 12/12/24 05:59 12/12/24 01:29 12/12/24 00:08 12/12/24 05:59 Pain Intensity Left Abdomen: Pain Intensity: 0 Notes Mental Status: alert / awake / arousable and participated in evaluation Patient Amnestic to Procedure: No Nausea / Vomiting: adequately controlled Pain: adequately controlled Airway Patency, RR, SpO2: stable & adequate BP & HR: stable & adequate Hydration State: stable & adequate Neuraxial Anesthesia: was administered and sensory block is resolving Anesthetic Complications: no major complications apparent and Pt Satisfied with anesthetic care Epidural: Removed without complications and With tip intact
[2024-12-12 06:38] LABS: Albumin Level 2.8 gm/dl (3.4-5.0); BUN Creatinine Ratio 7.8 (10-20); Bilirubin,Total 2.1 mg/dl (0.2-1.0); Calcium 8.2 mg/dl (8.6-10.3); Creatinine Clr Calc Pharmacy 58.2 ml/min; Globulin 2.8 gm/dl (2.5-4.0); Potassium 3.7 mmol/L (3.5-5.1); Total Protein 5.6 gm/dl (6.0-8.3)
[2024-12-12] MEDS: PRENATAL VITAMIN 1 TAB PO SCH (09:22)
[2024-12-12] MEDS: DOCUSATE SODIUM 100 MG CAP PO SCH (09:22)
[2024-12-12] MEDS ORDERED: Nursing to Pharmacy Communication SCH (10:30)
[2024-12-12] MEDS: DIPHTHER/TETAN/PERTUS Vaccine (Tdap, Adol/Adult) 0.5mL IM ONE (11:51)
[2024-12-12 14:34] LABS: Hematocrit (blood only) 30.4 % (37.0-47.0); Hemoglobin 10.1 g/dl (12.0-16.0); Mean Corpuscular Hemoglobin 27.7 pg (25.0-34.0); Mean Corpuscular Hgb Conc 33.2 g/dL (32.0-36.0); Mean Corpuscular Volume 83.5 fL (80.0-100.0); Mean Platelet Volume 11.5 fL (9.4-12.4); Platelet Count 252 K/uL (130-400); RDW Coefficient of Variation 13.8 % (11.5-14.5); RDW Standard Deviation 41.3 fL (36.4-46.3); Red Blood Count 3.64 M/uL (4.20-5.40); White Blood Count 21.81 K/ul (4.8-10.8)
[2024-12-12 15:18] LABS: Albumin Level 2.6 gm/dl (3.4-5.0); BUN Creatinine Ratio 11.1 (10-20); Bilirubin,Total 0.9 mg/dl (0.2-1.0); Calcium 8.6 mg/dl (8.6-10.3); Creatinine Clr Calc Pharmacy 70.2 ml/min; Globulin 2.6 gm/dl (2.5-4.0); Potassium 3.8 mmol/L (3.5-5.1); Total Protein 5.2 gm/dl (6.0-8.3)
[2024-12-12] MEDS: ACETAMINOPHEN SUSP 325 MG/10.15 ML UDC PO PRN (16:43)
[2024-12-12] MEDS: DOCUSATE SODIUM SYRUP 100 MG/10 ML UDC PO SCH (20:48)
[2024-12-13] MEDS: IBUPROFEN 200 MG/10 ML UDC PO PRN (02:27)
--- NOTE | 2024-12-13 07:43 | Obstetrical Progress Note ---
Date of Service December 13, 2024 Assessment & Plan (1) Encounter for care and examination after delivery: Day 1 status post vaginal delivery. complicated by cholestasis of with elevated liver enzymes. Elevated liver enzymes trending down shortly following delivery yesterday. Creatinine had a slight bump shortly after delivery which corrected within about 6 hours following. Blood pressures have been normotensive since shortly after delivery and denying any preeclampsia symptoms. (2) Cholestasis of : Trimester: unspecified trimester Qualified Code(s): O26.649 - I ntrahepatic cholestasis of , unspecified trimester Subjective Ambulation: ambulating normally Voiding: no voiding problems Passing Gas:: Yes Diet Tolerance:: regular diet Lochia:: Moderate Feeding Type:: breast feeding Physical Exam Constitutional WD/WN, vitals as above Respiratory normal respiratory effort; no respiratory distress and no labored breathing Cardiovascular Extremities: no calf tenderness Gastrointestinal (Abdomen) Inspection/Auscultation: abdomen normal to inspection; abdomen not distended Percussion/Palpation: abdomen soft; abdomen nontender, no guarding and abdomen not rigid Genitourinary OB Exam Abdomen: + fundal height Fundus: + firm and + relation to umbilicus (Below); not tender or not boggy Results & Data Vital Signs (Past 12 Hours) Vital Signs Temp Pulse Resp BP Pulse Ox O2 Del Method 12/13/24 03:02 36.5 C 65 18 124/80 Room Air 12/12/24 23:05 36.7 C 67 18 113/78 99 Room Air
[2024-12-13 07:47] LABS: Hematocrit (blood only) 29.9 % (37.0-47.0); Hemoglobin 9.7 g/dl (12.0-16.0)
[2024-12-13] MEDS ORDERED: SIMETHICONE 80 MG CHEW PO PRN (09:05)
[2024-12-13 16:10] VITALS: RESP 16
[2024-12-13] MEDS: bisacodyL 5 MG TABEC PO SCH (20:12)
[2024-12-13 20:45] VITALS: O2SAT 99
[2024-12-14 03:08] VITALS: BP 120/81; TEMP 98.2
--- NOTE | 2024-12-14 07:57 | Obstetrical Progress Note ---
Date of Service December 14, 2024 Assessment & Plan (1) Encounter for care and examination after delivery: 24 yo PP2 from , doing well -Meeting all pp milestones -Rh+/rubella immune -f/u 6 weeks for appt, stable for dc home Subjective Ambulation: ambulating normally Voiding: no voiding problems Passing Gas:: Yes Diet Tolerance:: regular diet Lochia:: Small Feeding Type:: breast feeding Pain well managed with medication Review of Systems Denies fevers, chills, n/v, WHEELER, CP, SOB Physical Exam Constitutional WD/WN, vitals as above no acute distress Respiratory normal respiratory effort, lungs clear to auscultation Cardiovascular RRR, no murmur, no edema Gastrointestinal (Abdomen) Percussion/Palpation: abdomen soft; abdomen nontender fundus firm at umbilicus and NT Musculoskeletal BLE symmetric, nonerythematous, nontender Results & Data Vital Signs (Past 12 Hours) Vital Signs Temp Pulse Resp BP Pulse Ox O2 Del Method 12/13/24 23:30 98.2 F 51 L 16 120/81 Room Air 12/13/24 20:00 97.7 F 62 16 139/84 99 Room Air
[2024-12-14 13:22] VITALS: PULSE 68
== END 2024-12-14 16:30 | disposition home or self-care (01) | DRG 807 ==
LOC: 4S1 13:29 → 4E2 12-12 09:00